=== PATIENT | female | born 1950 | race Caucasian/White ===

== ENCOUNTER → 2016-05-13 | Outpatient (CLI) | payer OTHER ==
--- NOTE | ~2016-05-13 | SLE ---
[facility] [address] [place] [address] POLYSOMNOGRAPHY STUDY Name: BINH GARCÍA Lennox Room #: REG [facility]#: [id number] Admission: 05/13/16 Attend Phys: Leonardo Ballesteros MD Discharge: Date of : 50 Report #: [id number] THIS REPORT FOR: //name// CC: Leonardo Bain MD A 65-year-old, height 4 feet 10 inches, weight 148 pounds. Usually goes to bed 9:30 to 10, gets out of bed at 6 a.m., somewhat refreshed. Positive snoring, no definite daytime somnolence. Sleep on this night was the same. The patient with history of loud snoring. Edelstein sleepiness scale of 10. COMMENTS: SLEEP SUMMARY: Total sleep time 425 minutes, sleep efficiency 92%. Sleep latency 6 minutes, REM latency 264 minutes. SLEEP STAGE: 1-10%, 2-76%, REM-8%, 3-6%. RESPIRATORY SUMMARY: Central apnea 1, obstructive apnea, 1, hypopnea 47. Apnea-hypopnea index 6.9 events per sleep hour. Non-REM 4, REM AHI 36 events per sleep hour. Supine AHI 9, left lateral 2, right lateral 5 events per sleep hour. Periodic limb movement with arousal index of 11 events per sleep hour. Low oxygen saturation 85%, spending less than 1%, recording time less than 90%. IMPRESSION: 1. Obstructive sleep apnea/hypopnea, G47.33. 2. Periodic limb movement with arousal index of 11 events per sleep hour. 3. Premature atrial contraction noted. SUGGESTIONS: 1. In addition to specific therapy, the patient should be cautioned regarding driving or operating dangerous machinery unless fully alert. The patient should be cautioned regarding the use of respiratory depressants. 2. Weight loss and TSH per Dr. Fleming. 3. Sleep position retraining may be considered. 4. Further evaluation regarding etiology of snoring is recommended, may consider ENT. 5. A CPAP titration night may be considered or an auto titrating CPAP if indicated. 6. If signs and symptoms not improved with therapy, further evaluation is recommended. Please do not hesitate to contact me if I may be of further assistance. <ELECTRONICALLY SIGNED> By: Leonardo Ballesteros MD 05/19/16 1842 42 25 Leonardo Ballesteros MD /nt
== END ==
LOC: SLEEPLAB 10:35
DX: G47.33 Obstructive sleep apnea (adult) (pediatric) (principal)

== ENCOUNTER → 2016-11-10 | Outpatient (CLI) | payer OTHER | LOC: ULTRA 12:30 | DX: R22.1 Localized swelling, mass and lump, neck (principal) ==

== ENCOUNTER → 2017-03-10 | Outpatient (CLI) | payer OTHER ==
--- NOTE | ~2017-03-10 | EKG ---
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
== END ==
LOC: CV 12:21
DX: Z01.810 Encounter for preprocedural cardiovascular examination (principal); I10 Essential (primary) hypertension

== ENCOUNTER → 2017-10-12 | Outpatient (CLI) | payer OTHER ==
[~2017-10-12] MED LIST: ARTIFICIALS TEA30 ML OPHTHALMIC; CENTRUM SILVER1 EAC4 PO; LISINOPRIL2.5 MG PO; MEDROLDOSEPACK PO; PAXIL10 MG PO
== END ==
LOC: ULTRA 08:42
DX: M79.661 Pain in right lower leg (principal); M79.89 Other specified soft tissue disorders

== ENCOUNTER → 2018-05-21 | Outpatient (CLI) | payer OTHER | LOC: RAD 14:51 | DX: M19.072 Primary osteoarthritis, left ankle and foot (principal) ==

== ENCOUNTER → 2019-02-14 | Outpatient (CLI) | payer OTHER | LOC: BC 15:07 | DX: N63.20 Unspecified lump in the left breast, unspecified quadrant (principal) ==

== ENCOUNTER → 2019-02-15 | Outpatient (CLI) | payer OTHER ==
--- NOTE | 2019-02-17 15:07 | PATH ---
[facility] [address] [place] [address] PATHOLOGY RPT PROCEDURE Name: SHEREEN GARCÍA Lennox Room #: REG [facility] Angie.#: [id number] Admission: 02/15/19 Date of : 50 Discharge: Report #: [id number] Path Case #: [id number] [facility] Accession Number: [id number] . 01 Material submitted: . breast - LEFT BREAST MASS 11:00 3 CMFN. Modifiers: left . 01 Clinical history: . Left breast mass . 02 Diagnosis: Breast, left 11:00, 3 cm from nipple, needle core biopsy: - PROLIFERATIVE FIBROCYSTIC CHANGES WITH MODERATE DUCT ECTASIA, STROMAL FIBROSIS, COLUMNAR CELL HYPERPLASIA, FOCAL ATYPICAL LOBULAR HYPERPLASIA WELL ATYPICAL (CRIBRIFORM TYPE) DUCTAL HYPERPLASIA. - COARSE CALCIFICATIONS IDENTIFIED IN ASSOCIATION WITH ATYPICAL DUCTAL HYPERPLASIA. - Negative for invasive carcinoma. (IUV:dedra; 02/17/2019) QMS 02/17/2019 1131 Local . 02 Comment: Properly controlled immunohistochemical stains are performed no block A3, and included CK5/6, ER as well as AE1/AE3. The focus of atypical ductal proliferation identified shows loss of the mosaic pattern with CK5/6 and shows strong nuclear reactivity in 100% of the cells with ER. This focus measures 1 mm in greatest dimension. AE1/AE3 fails to show invasive carcinoma. . Dr. Zuri Cruz has seen procurement representative slides of this case and concurs with my diagnosis. . (IUV:dedra; 02/17/2019) . 02 Electronically signed: . Mary Cannon MD, Pathologist NPI- [id number] . 01 Gross description: . The specimen is received in formalin, labeled "Shereen García, left breast 11:00 3 cm". Received are multiple needle cores of fibrofatty tissue measuring 3.2 x 3.0 x 0.7 cm in aggregate dimensions. The specimen is submitted entirely in cassettes A1 through A4. The cold ischemic time and time in formalin are not provided. The time out of formalin is 9:50 p.m. on 02/15/2019. (CAA; 02/15/2019) QAC/QAC 02/15/[address] [address] PATHOLOGY RPT PROCEDURE Name: SHEREEN GARCÍA Room #: REG CLI .Sindy.#: [id number] Admission: 02/15/19 Date of : 50 Discharge: Report #: [id number] Path Case #: [id number] . 02 Pathologist provided ICD-10: N60.12, N60.42, N60.32, N60.92 . 02 CPT . 196514, F99414, F06208 Specimen Comment: A courtesy copy of this report has been sent to Specimen Comment: [phone], . Specimen Comment: Report sent to / DR RAMIREZ Performed at: [address], [place] [id number] MD Moreno Sim MD Phone: [phone] Performed at: [address] [id number] MD Mary Cannon MD Phone: [phone]
== END | disposition home or self-care (01) ==
LOC: ULTRA 08:56 → MRI 08:56
DX: N63.20 Unspecified lump in the left breast, unspecified quadrant (principal); N60.12 Diffuse cystic mastopathy of left breast; N60.42 Mammary duct ectasia of left breast; N60.92 Unspecified benign mammary dysplasia of left breast; R92.1 Mammographic calcification found on diagnostic imaging of breast; Z88.2 Allergy status to sulfonamides; Z88.8 Allergy status to other drugs, medicaments and biological substances; Z79.899 Other long term (current) drug therapy

== ENCOUNTER → 2019-09-07 | Outpatient (CLI) | payer OTHER | LOC: RAD 11:07 | DX: R05 Cough (principal) ==

== ENCOUNTER → 2021-04-26 | Outpatient (CLI) | payer OTHER | LOC: LAB 12:55 | PROVIDERS: ATTEND Student in an Organized Health Care Education/Training Program | DX: Z01.812 Encounter for preprocedural laboratory examination (principal); Z20.822 Contact with and (suspected) exposure to COVID-19 ==

== ENCOUNTER → 2021-04-30 | Outpatient (CLI) | payer OTHER ==
[~2021-04-30] VITALS: Ht 147.3 cm; Wt 62.6 kg
[~2021-04-30] MED LIST changes: +ARIMIDEX1 MG PO; +OMEPRAZOLE 20 M20 M1 PO; +PROAIR HFA8.5 GM INH; +SYMBICORT160 MCG/4. INH
--- NOTE | 2021-05-01 14:07 | PATH ---
[facility] [place] [address] PATHOLOGY RPT PROCEDURE Name: SHEREEN GARCÍA Room #: REG [facility].#: [id number] Admission: 04/30/21 Date of : 50 Discharge: Report #: [id number] Path Case #: [id number] [facility] Accession Number: [id number] . 01 Material submitted: . colon - TRANSVERSE COLON POLYP. Modifiers: transverse . 01 Clinical history: . FAMILY HISTORY OF COLON CANCER, SCREENING . 02 Diagnosis: Transverse colon polyp, polypectomy: - Colonic mucosa with chronic non-specific inflammation, hemorrhage and focal crypt distortion. - Negative for adenomatous change or malignancy. (ANK/db; 05/01/2021) LBQ 05/01/2021 1143 Local . 02 Electronically signed: . Duyen Keenan MD, Pathologist NPI- [id number] . 01 Gross description: . The specimen is received in formalin, labeled "García, Shereen, transverse colon polyp" and consists of a weiss soft irregular tissue measuring 0.8 x 0.4 x 0.3 cm which is submitted in toto in A1.([place]; 04/30/2021) DKA/DKA 04/30/2021 1618 Local . 02 Pathologist provided ICD-10: K52.9 . 02 CPT . [id number] Specimen Comment: A courtesy copy of this report has been sent to [phone] Specimen Comment: [phone] Specimen Comment: Report sent to / DR RAMIREZ Performed at: [address], [place] [id number] MD Rashad Hill MD Phone: [phone] Performed at: [address] [id number] MD Duyen Keenan MD Phone: [phone]
== END | disposition home or self-care (01) ==
LOC: GI 06:31
PROVIDERS: ATTEND Internal Medicine
DX: Z12.11 Encounter for screening for malignant neoplasm of colon (principal); Z80.0 Family history of malignant neoplasm of digestive organs; K52.9 Noninfective gastroenteritis and colitis, unspecified; K64.8 Other hemorrhoids; E78.00 Pure hypercholesterolemia, unspecified; G47.30 Sleep apnea, unspecified; J45.909 Unspecified asthma, uncomplicated; K21.9 Gastro-esophageal reflux disease without esophagitis; Z98.890 Other specified postprocedural states; Z79.899 Other long term (current) drug therapy; Z85.3 Personal history of malignant neoplasm of breast; Z88.2 Allergy status to sulfonamides
CPT/HCPCS: 62110; 62900